=== PATIENT | female | born 1960 | race Caucasian/White ===

== ENCOUNTER 2016-10-03 12:32 | Emergency (ER) | payer BC ==
--- NOTE | ~2016-10-03 | CT71 ---
[facility] A Service of [facility] RADIOLOGY TEXT RESULTS PATIENT: MARQUEZ BRADLEY LOCATION: SED : 58 UNIT #: [id number] AGE: [address]: Ar Temple MD SEX: F ORDER DR: [id number] [place] [id number] MR#: [id number] Acc #: [id number] NAME: MARQUEZ BRADLEY. : 1960 SEX: F STUDY DATE/TIME: 10/03/2016 13:42 UNIT: SED ROOM: STUDY DESCRIPTION: CT Head Wo Contrast Attending Physician: Ar Temple M.D. Ordering Physician: Ar Temple M.D. Primary Care Physician: Isidro Metz M.D. MEDICAL IMAGING REPORT This report is preliminary unless electronic signature is present. EXAM Head CT no contrast, 10/03/2016 PROCEDURE Axial unenhanced head CT. This CT exam was performed with one or more of the following radiation dose reduction techniques: automatic exposure control, adjustment of mA and/or kV according to patient size, and iterative reconstruction. COMPARISON Prior head CT 01/08/2008. CLINICAL HISTORY Severe headache since this morning. FINDINGS The skull base and calvaria are normal. The extracranial soft tissues are normal. Brain parenchymal density is normal except for slight periventricular white matter change, but there is no hemorrhage or mass or hydrocephalus or extraaxial fluid collection. IMPRESSION Minimal nonspecific white matter change. No acute abnormality. Essentially normal negative age appropriate exam without convincing interval change since 01/08/2008. Dictated by... Chucky Alonso M.D. [facility] A Service of [facility] RADIOLOGY TEXT RESULTS PATIENT: MARQUEZ BRADLEY LOCATION: SED : 58 UNIT #: [id number] AGE: [address]: Ar Temple MD SEX: F ORDER DR: THIS IS AN ELECTRONICALLY VERIFIED REPORT Chucky Alonso M.D. at 10/05/2016 2:17 PM Get TD: 10/03/2016 15:45 JOB #: [id number] MEDICAL IMAGING REPORT Page 1 of 1
[~2016-10-03 12:32] MED LIST: AMBIEN PO; AMBIEN10 MG PO; AUGMENTIN PO; BENICAR PO; BENTYL10 MG PO; BENTYL20 M1 PO; BENTYL20 MG PO; CIPRO PO; COMPAZINE10 MG PO; COZAAR100 MG; COZAAR100 MG PO; DITROPAN5 MG PO; ESCITALOPRAM OX20 MG PO; FLEXERIL PO; GABAPENTIN400 M2; GABAPENTIN400 MG PO; IBUPROFEN PO; KCL PO; LEVAQUIN PO; LEXAPRO; LEXAPRO PO; LEXAPRO20 MG PO; LOMOTIL TABLET1 TAB PO; LYRICA PO; MACROBID100 M1 PO; PAIN RELIEF 5%1 EACH; PANTOPRAZOLE SO40 MG PO; PERCOCET 7.5-31 EACH PO; PERCOCET5/325 PO; PHENADOZ12.5 MG PR; PHENERGAN PO; PHENERGAN SUPP25 M1 PR; PHENERGAN SUPP25 MG PR; PHENERGAN TOP; PHENERGAN25 M1 PO; PHENERGAN25 M1 PR; PHENERGAN25 MG PO; PROTONIX PO; QUETIAPINE FUM200 MG PO; REGLAN10 MG PO; RITE-AID PHARMACY; SEROQUEL; SONATA PO; TETRACYCLINE 500 MG; TOVIAZ8 MG PO; TRAMADOL HCL50 M2 PO; VICODIN 5/500 T1 TAB PO; ZOFRAN ODT4 MG/UDTAB PO; ZOFRAN SL
[2016-10-03] MEDS ORDERED: BUSPIRONE HCL10 MG (12:38)
== END 2016-10-03 14:40 | disposition home or self-care (01) ==
LOC: SED 12:32
DX: G44.209 Tension-type headache, unspecified, not intractable (principal); H11.32 Conjunctival hemorrhage, left eye; Z88.0 Allergy status to penicillin; Z88.2 Allergy status to sulfonamides; Z88.5 Allergy status to narcotic agent; Z88.8 Allergy status to other drugs, medicaments and biological substances; Z88.1 Allergy status to other antibiotic agents; Z79.899 Other long term (current) drug therapy
CPT/HCPCS: 70450; 99284